=== PATIENT | female | born 1990 | race Hispanic/Latino ===

== ENCOUNTER 2017-03-25 13:34 | Outpatient (CLI) | payer MEDICAID ==
--- NOTE | 2017-03-26 09:39 | Ultrasound Report ---
RIGHT UPPER QUADRANT ULTRASOUND: HISTORY: Epigastric abdominal pain. Technique: Transabdominal ultrasound imaging with Doppler interrogation. FINDINGS: There is minimal sludge and a few tiny gallstones in the gallbladder. The gallbladder is normal size, contour and wall thickness. The CBD measures 4 mm. Images of the liver parenchyma, pancreas, right kidney and aorta are within normal limits. No perihepatic ascites. IMPRESSION: Minimal cholelithiasis.
== END 2017-03-25 13:35 | disposition home or self-care (01) ==
LOC: US 13:34
PROVIDERS: ATTEND Obstetrics & Gynecology
DX: K80.20 Calculus of gallbladder without cholecystitis without obstruction (principal)
CPT/HCPCS: 76705